=== PATIENT | female | born 1975 | race Hispanic/Latino ===

== ENCOUNTER 2022-09-15 05:34 | Emergency (ER) | payer BC ==
[~2022-09-15] VITALS: Ht 152.4 cm; Wt 96.2 kg
[2022-09-15 05:59] VITALS: BP 145/68
[2022-09-15] MEDS ORDERED: CYCLOBENZAPRINE HCL 10 MG TABLET PO ONE (06:00)
[2022-09-15] MEDS ORDERED: KETOROLAC 30MG VIAL (30MG/ML) IM PRN (06:00)
[2022-09-15] MEDS ORDERED: IBUP-2071 PO (07:39)
[2022-09-15] MEDS ORDERED: HYDR-4060 PO (07:39)
== END 2022-09-15 07:53 | disposition home or self-care (01) ==
LOC: EDH 05:34
DX: M75.52 Bursitis of left shoulder (principal); M54.12 Radiculopathy, cervical region; Z79.1 Long term (current) use of non-steroidal anti-inflammatories (NSAID)
CPT/HCPCS: 99284; 72040; 71101; 96372; J1885

== ENCOUNTER 2024-06-07 17:26 | Emergency (ER) | payer BC ==
[~2024-06-07] VITALS: Ht 152.4 cm; Wt 90.7 kg
[~2024-06-07 17:26] MED LIST: HYDR-4060 PO; IBUP-2071 PO
[2024-06-07] MEDS: ORPHENADRINE 60MG/2ML IM ONE (19:05)
[2024-06-07] MEDS: ketOROlac 60 MG VIAL (30MG/ML) IM ONE (19:06)
[2024-06-07 19:38] VITALS: BP 147/92; PULSE 96; RESP 16; TEMP 98.9; O2SAT 98
[2024-06-07] MEDS ORDERED: IBUP-2070 PO (19:38)
[2024-06-07] MEDS ORDERED: CYCL10TA16 PO (19:38)
== END 2024-06-07 19:45 | disposition home or self-care (01) ==
LOC: EDH 17:26
DX: M54.12 Radiculopathy, cervical region (principal); I10 Essential (primary) hypertension; Z79.899 Other long term (current) drug therapy; Z98.890 Other specified postprocedural states
CPT/HCPCS: 99284; 72040; 96372 ×2; J1885; J2360